=== PATIENT | male | born 1950 | race Caucasian/White ===

== ENCOUNTER 2019-06-19 09:37 | Outpatient (CLI) | payer OTHER, SELFPAY ==
--- NOTE | 2019-06-19 09:30 | XR_ITS ---
WS: [id number] KUB, 06/19/2019 Clinical Data: F/U KIDNEY STONE Comparison: KUB, 05/29/2019 Findings: The right ureteral stent has been removed. There are calcifications overlying the left kidney but non e over the right kidney. The bladder is partly full. Prostate calcifications are seen. XR/XR KUB [id number] Impression: 1. Removal of right ureteral catheter. 2. Calcifications overlying left kidney may represent renal calcifications.
== END 2019-06-19 09:38 | disposition home or self-care (01) ==
LOC: RAD 09:39
PROVIDERS: Family Provider Emergency Medicine Emergency Medical Services; PCP Emergency Medicine Emergency Medical Services; Visit Provider Urology
DX: N20.0 Calculus of kidney (principal)
CPT/HCPCS: 74018; 81001

== ENCOUNTER 2019-07-22 13:45 | Outpatient (CLI) | payer OTHER, SELFPAY ==
--- NOTE | 2019-07-22 13:58 | USCV_ITS ---
Jj Dash Age: 69 Gender: M : 1950 Exam Date: 07/22/2019 14:23 Ordering Phys: Augustin Gonsales DO Technologist: ADAN ORNELAS [place]am Location: [facility] [place] [place]: BILATERAL BRUIT Risk Factors: Previous Vascular Surgery: Right Brachial BP: / Left Brachial BP: / Right Left Velocity (cm/s) Spectral Plaque Velocity (cm/s) Spectral Plaque Syst/Diast Broadening Syst/Diast Broadening 123.50/25.40 Prox CCA 95.10 / 20.00 87.10/ 23.20 Mid CCA 85.40 / 19.10 64.50/ 13.20 Distal CCA 71.30 / 20.70 68.10/ 22.00 Prox ICA 71.40 / 21.30 86.20/ 32.10 Mid ICA 61.40 / 21.60 61.50/ 23.90 Distal ICA 76.30 / 29.00 132.30 ECA 105.40 0.99 ICA/CCA 0.89 Antegrade Vertebral Antegrade 61.50/ 20.50 cm/s 40.20/ 10.20 cm/s Bi Subclavian Tri 136.7 110.3 0 0 FINDINGS Comparison: none available. No significant elevation of systolic or diastolic velocities. Mild bilateral calcified plaque and intimal thickening extending through the bifurcation. CONCLUSIONS Bilateral ICA stenosis less than 50%. No significant obstructive lesions noted in the extracranial carotid system. Dr. Nadja Fernandez DO (Electronically Signed) Final Date: 22 July 2019 15:15 S
== END 2019-07-22 13:46 | disposition home or self-care (01) ==
PROVIDERS: Family Provider Emergency Medicine Emergency Medical Services; PCP Emergency Medicine Emergency Medical Services; Visit Provider Emergency Medicine Emergency Medical Services
DX: I65.23 Occlusion and stenosis of bilateral carotid arteries (principal); R09.89 Other specified symptoms and signs involving the circulatory and respiratory systems
CPT/HCPCS: 93880

== ENCOUNTER 2020-03-17 07:00 | Outpatient (CLI) | payer OTHER, SELFPAY ==
--- NOTE | 2020-03-17 07:05 | XR_ITS ---
WS: [id number] XR KUB [id number] REASON FOR EXAM: Stones FINDINGS: No free air or retroperitoneal air. Normal bowel gas pattern. There are 2 calculi within the left kidney one in the upper pole one in the lower pole. They are unch anged in size and location compared to the previous examination of 06/19/2019. Prostatic calcifications unchanged. XR/XR KUB [id number] IMPRESSION: Left renal calculi unchanged.
== END 2020-03-17 07:01 | disposition home or self-care (01) ==
PROVIDERS: PCP Emergency Medicine Emergency Medical Services; Visit Provider Urology
DX: N20.0 Calculus of kidney (principal)
CPT/HCPCS: 74018; 81001

== ENCOUNTER → 2023-07-23 08:53 | Outpatient (BNVA) | payer OTHER, SELFPAY | PROVIDERS: PCP Emergency Medicine Emergency Medical Services; Referring Provider Emergency Medicine Emergency Medical Services; Visit Provider Internal Medicine | DX: E11.9 Type 2 diabetes mellitus without complications (principal); E78.2 Mixed hyperlipidemia; Z87.440 Personal history of urinary (tract) infections; Z79.4 Long term (current) use of insulin; I25.10 Atherosclerotic heart disease of native coronary artery without angina pectoris; Z86.718 Personal history of other venous thrombosis and embolism; Z79.85 Long-term (current) use of injectable non-insulin antidiabetic drugs | CPT/HCPCS: 99204 ==

== ENCOUNTER → 2023-10-10 09:23 | Outpatient (BNVA) | payer OTHER, SELFPAY | PROVIDERS: PCP Emergency Medicine Emergency Medical Services; Visit Provider Internal Medicine | DX: E11.9 Type 2 diabetes mellitus without complications (principal); E78.2 Mixed hyperlipidemia; N20.9 Urinary calculus, unspecified; Z87.440 Personal history of urinary (tract) infections; Z79.4 Long term (current) use of insulin; Z79.85 Long-term (current) use of injectable non-insulin antidiabetic drugs | CPT/HCPCS: 99214 ==

== ENCOUNTER → 2023-10-21 10:31 | Outpatient (BNVA) | payer OTHER, SELFPAY | PROVIDERS: PCP Emergency Medicine Emergency Medical Services; Visit Provider Internal Medicine | DX: E11.9 Type 2 diabetes mellitus without complications (principal); E78.2 Mixed hyperlipidemia; N20.9 Urinary calculus, unspecified; Z87.440 Personal history of urinary (tract) infections; Z79.4 Long term (current) use of insulin; Z79.85 Long-term (current) use of injectable non-insulin antidiabetic drugs | CPT/HCPCS: 99214 ==

== ENCOUNTER 2023-11-05 08:53 | Outpatient (CLI) | payer OTHER, SELFPAY ==
[2023-11-05 09:38] LABS: Estmated Average Glucose 163; Hemoglobin A1C 7.3 % (4.0-6.0)
[2023-11-05 09:46] LABS: Alanine Aminotransferase 30 U/L (0-41); Albumin Level 3.9 g/dL (3.5-5.2); Alkaline Phosphatase 65 U/L (40-130); Anion Gap 15.5 (5-19); Aspartate Amino Transferase 27 U/L (0-40); Blood Urea Nitrogen 9 mg/dL (8-23); Calcium 9.2 mg/dL (8.5-10.5); Carbon Dioxide 26 mmol/L (22-29); Chloride 103 mmol/L (98-107); Chol HDL Ratio 3.39 mg/dL (1.0-5.00); Cholesterol 122 mg/dL (0-200); Globulin 3.6 g/dL (1.3-4.6); Glucose 163 mg/dL (65-115); HDL Cholesterol 36 mg/dL (60-100); LDL Cholesterol Calculated 44 mg/dL (50-129); LDL HDL Ratio 1.22 RATIO (0.00-3.22); Osmolality Calculated 292 mOsm/kg (285-295); Potassium 4.5 mmol/L (3.5-5.1); Sodium 140 mmol/L (136-145); Total Bilirubin 0.7 mg/dL (0.15-1.2); Total Protein 7.5 g/dL (6.6-8.7); Triglycerides 208 mg/dL (0-150)
[2023-11-05 09:57] LABS: Creatinine Urine, Random 107 mg/dL (39-259); Microalbum Creatinine Ratio Ur 28 mg/dL (0-20); Microalbumin Random Urine 3 ug/dL (0-20)
== END 2023-11-05 08:54 | disposition home or self-care (01) ==
PROVIDERS: PCP Emergency Medicine Emergency Medical Services; Visit Provider Internal Medicine
DX: E11.9 Type 2 diabetes mellitus without complications (principal)
CPT/HCPCS: 36415; 80053; 80061; 82044; 83036

== ENCOUNTER → 2024-01-15 10:11 | Outpatient (BNVA) | payer OTHER, SELFPAY | PROVIDERS: PCP Emergency Medicine Emergency Medical Services; Visit Provider Internal Medicine | DX: E11.9 Type 2 diabetes mellitus without complications (principal); E78.2 Mixed hyperlipidemia; N20.9 Urinary calculus, unspecified; Z87.440 Personal history of urinary (tract) infections; Z79.4 Long term (current) use of insulin; Z79.85 Long-term (current) use of injectable non-insulin antidiabetic drugs | CPT/HCPCS: 99214 ==

== ENCOUNTER → 2024-05-15 10:54 | Outpatient (BNVA) | payer OTHER, SELFPAY | PROVIDERS: PCP Emergency Medicine Emergency Medical Services; Visit Provider Internal Medicine | DX: E11.9 Type 2 diabetes mellitus without complications (principal); E78.2 Mixed hyperlipidemia; N20.9 Urinary calculus, unspecified; Z87.440 Personal history of urinary (tract) infections; Z79.4 Long term (current) use of insulin; Z79.85 Long-term (current) use of injectable non-insulin antidiabetic drugs | CPT/HCPCS: 99214 ==

== ENCOUNTER → 2024-09-30 10:25 | Outpatient (BNVA) | payer OTHER, SELFPAY | PROVIDERS: PCP Emergency Medicine Emergency Medical Services; Visit Provider Internal Medicine | DX: E11.9 Type 2 diabetes mellitus without complications (principal); E78.2 Mixed hyperlipidemia | CPT/HCPCS: 99214 ==